=== PATIENT | female | born 1980 | race Caucasian/White ===

== ENCOUNTER 2018-12-13 12:19 | Inpatient (IN) | payer SELFPAY, MEDICAID ==
[2018-12-13] MEDS ORDERED: MISOPROSTOL 200 MCG TAB PR ×2 (13:00→20:00)
[2018-12-13] MEDS ORDERED: OXYTOCIN 30 UNITS/LR 500 ML IV ×2 (13:00→20:00)
[2018-12-13] MEDS ORDERED: METHYLERGONOVINE 0.2 MG INJ IM ×2 (13:00→20:00)
[2018-12-13] MEDS ORDERED: CARBOPROST 250 MCG INJ IM ×2 (13:00→20:00)
[2018-12-13 13:09] LABS: ADD MAN DIFF? NO
[2018-12-13 13:12] LABS: BASOPHILS % 0.2 % (0.0-2.0); EOSINOPHILS # 0.1 10^3/ul (0.0-0.5); EOSINOPHILS % 0.8 % (0.0-7.0); HEMATOCRIT 33.4 % (37.0-47.0); HEMOGLOBIN 11.4 g/dl (12.0-16.0); LYMPHOCYTES # 2.2 10^3/ul (0.8-2.9); LYMPHOCYTES % 22.7 % (15.0-51.0); MEAN CORPUSCULAR HGB CONC 34.1 g/dl (32.0-37.0); MEAN CORPUSCULAR VOLUME 90.8 fl (82.0-101.0); MEAN PLATELET VOLUME 10.7 fl (7.4-10.4); MONOCYTE # 0.8 10^3/ul (0.3-0.9); MONOCYTES % 7.7 % (0.0-11.0); NEUTROPHIL # 6.6 10^3/ul (1.6-7.5); NEUTROPHILS % 67.9 % (39.0-77.0); PLATELET COUNT 181 10^3/UL (140-415); RED BLOOD COUNT 3.68 10^6/ul (4.20-5.40); RED CELL DISTRIBUTION WIDTH 14.1 % (11.5-14.5)
[2018-12-13 13:12] LABS: WHITE BLOOD COUNT 9.7 10^3/ul (4.8-10.8)
[2018-12-13 13:31] LABS: INR 0.92; PARTIAL THROMBOPLASTIN TIME 28.4 Sec (23.0-35.0); PROTIME 12.5 Sec (11.9-14.9)
[2018-12-13] MEDS: LACTATED RINGER'S 1,000 ML IV ×2 (14:03→20:17)
[2018-12-13] MEDS: CITRIC ACID/NA CITRATE 30 ML CUP PO (14:18)
[2018-12-13] MEDS: ONDANSETRON 4 MG INJ IV (14:19)
[2018-12-13] MEDS: AZITHROMYCIN 500MG/NS (PMX) 250 ML IVPB (14:37)
[2018-12-13 15:02] LABS: RAPID PLASMA REAGIN NONREACTIVE (NR)
[2018-12-13] MEDS ORDERED: FENTAnyl 50 MCG/ML VIAL (15:18)
[2018-12-13] MEDS ORDERED: OXYTOCIN 10 UNIT INJ (15:19)
[2018-12-13] MEDS ORDERED: METOCLOPRAMIDE 10 MG INJ (15:19)
[2018-12-13] MEDS ORDERED: morphine SULFATE/PF (10 MG/10 ML) INJ (15:19)
[2018-12-13] MEDS ORDERED: MIDAZOLAM 1 MG/ML 2 ML INJ (15:44)
[2018-12-13] MEDS ORDERED: KETAMINE (50 MG/ML) 10 ML VIAL (15:44)
[2018-12-13] MEDS ORDERED: KETOROLAC 30 MG INJ (15:58)
[2018-12-13] MEDS ORDERED: OXYCODONE/ACETAMINOPHEN (5/325) TAB PO ×2 (16:00)
[2018-12-13] MEDS ORDERED: ONDANSETRON 4 MG INJ IV ×2 (16:00)
[2018-12-13] MEDS ORDERED: MIDAZOLAM 1 MG/ML 2 ML INJ IV (16:00)
[2018-12-13] MEDS ORDERED: LABETALOL HCL 20MG INJ IV (16:00)
[2018-12-13] MEDS ORDERED: EPHEDrine SULFATE 50 MG/5 ML SYG IV (16:00)
[2018-12-13] MEDS ORDERED: NALBUPHINE HCL (10 MG/1 ML) INJ IV (16:00)
[2018-12-13] MEDS ORDERED: MEPERIDINE 25 MG INJ IV (16:00)
[2018-12-13] MEDS ORDERED: ALBUTEROL 0.083% (NEB) 2.5 MG/3 ML AMP HHN (16:00)
[2018-12-13] MEDS ORDERED: DIPHENHYDRAMINE 50 MG INJ IV ×2 (16:00)
[2018-12-13] MEDS ORDERED: FENTAnyl 50 MCG/ML VIAL IV ×3 (16:00)
[2018-12-13] MEDS ORDERED: hydrALAzine 20 MG INJ IV (16:00)
[2018-12-13] MEDS ORDERED: IPRATROPIUM (NEB) 0.5 MG/2.5 ML AMP HHN (16:00)
[2018-12-13] MEDS ORDERED: TRIMETHOBENZAMIDE 100 MG/ML VIAL IM ×2 (16:00)
[2018-12-13] MEDS ORDERED: morphine 2 MG INJ IV ×2 (16:00)
[2018-12-13] MEDS ORDERED: NALOXONE (0.4 MG/ML) INJ IV (16:00)
[2018-12-13] MEDS: OXYTOCIN 30 UNITS/LR 500 ML IV (17:00)
[2018-12-13] MEDS: CEFAZOLIN 2 GM/50 ML (PMX) 50 ML IVPB ×2 (17:19→20:58)
[2018-12-13] MEDS: KETOROLAC 30 MG INJ IV (20:17)
[2018-12-13] MEDS: SENNA/DOCUSATE NA (8.6MG/50MG) TAB PO (21:00)
[2018-12-14] MEDS: CLINDAMYCIN 300 MG CAP PO ×5 (00:41→23:44)
[2018-12-14] MEDS: CEFAZOLIN 2 GM/50 ML (PMX) 50 ML IVPB ×2 (04:59→12:40)
[2018-12-14] MEDS: LACTATED RINGER'S 1,000 ML IV ×3 (06:38→22:30)
[2018-12-14 07:19] LABS: ADD MAN DIFF? NO
[2018-12-14 07:24] LABS: WHITE BLOOD COUNT 12.1 10^3/ul (4.8-10.8)
[2018-12-14 07:24] LABS: BASOPHILS % 0.2 % (0.0-2.0); EOSINOPHILS % 0.2 % (0.0-7.0); HEMATOCRIT 28.8 % (37.0-47.0); HEMOGLOBIN 10.1 g/dl (12.0-16.0); LYMPHOCYTES # 1.5 10^3/ul (0.8-2.9); LYMPHOCYTES % 12.1 % (15.0-51.0); MEAN CORPUSCULAR HEMOGLOBIN 31.6 pg (29.0-33.0); MEAN CORPUSCULAR HGB CONC 35.1 g/dl (32.0-37.0); MEAN PLATELET VOLUME 10.7 fl (7.4-10.4); MONOCYTE # 0.6 10^3/ul (0.3-0.9); MONOCYTES % 4.9 % (0.0-11.0); NEUTROPHIL # 9.9 10^3/ul (1.6-7.5); NEUTROPHILS % 81.9 % (39.0-77.0); PLATELET COUNT 148 10^3/UL (140-415); RED CELL DISTRIBUTION WIDTH 13.9 % (11.5-14.5)
[2018-12-14] MEDS: SENNA/DOCUSATE NA (8.6MG/50MG) TAB PO ×2 (09:01→21:41)
[2018-12-14 09:43] LABS: HEPATITIS B SURFACE ANTIGEN NEGATIVE (NEGATIVE)
[2018-12-14] MEDS: BISACODYL 10 MG SUPP PR (11:00)
[2018-12-14] MEDS: KETOROLAC 30 MG INJ IV (12:40)
[2018-12-14] MEDS: IBUPROFEN 800 MG TAB PO ×2 (15:21→21:41)
[2018-12-14] MEDS: OXYCODONE/ACETAMINOPHEN (5/325) TAB PO (15:56)
[2018-12-14] MEDS: HYDROCODONE/APAP (5/325) TAB PO (23:45)
[2018-12-15] MEDS: HYDROCODONE/APAP (5/325) TAB PO ×2 (03:56→08:53)
[2018-12-15] MEDS: CLINDAMYCIN 300 MG CAP PO ×3 (05:22→17:58)
[2018-12-15] MEDS: IBUPROFEN 800 MG TAB PO ×3 (05:23→21:41)
[2018-12-15] MEDS: LACTATED RINGER'S 1,000 ML IV (06:30)
[2018-12-15 08:37] LABS: ADD MAN DIFF? NO
[2018-12-15 08:44] LABS: BASOPHILS % 0.3 % (0.0-2.0); EOSINOPHILS # 0.1 10^3/ul (0.0-0.5); EOSINOPHILS % 1.1 % (0.0-7.0); HEMATOCRIT 28.7 % (37.0-47.0); HEMOGLOBIN 9.8 g/dl (12.0-16.0); LYMPHOCYTES # 1.8 10^3/ul (0.8-2.9); LYMPHOCYTES % 16.7 % (15.0-51.0); MEAN CORPUSCULAR HEMOGLOBIN 31.3 pg (29.0-33.0); MEAN CORPUSCULAR HGB CONC 34.1 g/dl (32.0-37.0); MEAN CORPUSCULAR VOLUME 91.7 fl (82.0-101.0); MEAN PLATELET VOLUME 10.6 fl (7.4-10.4); MONOCYTE # 0.6 10^3/ul (0.3-0.9); MONOCYTES % 5.4 % (0.0-11.0); NEUTROPHIL # 8.3 10^3/ul (1.6-7.5); NEUTROPHILS % 75.6 % (39.0-77.0); PLATELET COUNT 160 10^3/UL (140-415); RED BLOOD COUNT 3.13 10^6/ul (4.20-5.40); RED CELL DISTRIBUTION WIDTH 14.4 % (11.5-14.5)
[2018-12-15] MEDS: LANOLIN HPA 1 PKT TOP (08:53)
[2018-12-15] MEDS: SENNA/DOCUSATE NA (8.6MG/50MG) TAB PO ×2 (08:53→21:41)
[2018-12-15] MEDS ORDERED: ACETAMINOPHEN 325 MG TAB PO (14:30)
[2018-12-15] MEDS: NA PHOSPHATE/BIPHOS 133 ML ENEMA PR (17:05)
[2018-12-15] MEDS: OXYCODONE/ACETAMINOPHEN (5/325) TAB PO (17:59)
[2018-12-16] MEDS: CLINDAMYCIN 300 MG CAP PO ×3 (00:09→11:40)
[2018-12-16] MEDS: IBUPROFEN 800 MG TAB PO ×2 (06:07→13:32)
[2018-12-16] MEDS: SENNA/DOCUSATE NA (8.6MG/50MG) TAB PO (08:34)
[2018-12-16] MEDS: OXYCODONE/ACETAMINOPHEN (5/325) TAB PO (08:35)
[2018-12-16] MEDS: MEASLES,MUMPS,RUBELLA VACCINE INJ SC* (09:46)
[2018-12-16] MEDS: DIPHTH/TET/ACEL PERTUSS (ADULT) 0.5 ML VIAL IM* (09:47)
== END 2018-12-16 13:40 | disposition home or self-care (01) | DRG 788 ==
LOC: L-D 12:19 → PP1 18:59
PROVIDERS: Obstetrics & Gynecology
PROC: 10D00Z1 Extraction of Products of Conception, Low, Open Approach (ICD-10-PCS; principal; 2018-12-13 14:30)
DX: O34.211 Maternal care for low transverse scar from previous cesarean delivery (principal); Z3A.39 39 weeks gestation of pregnancy; Z37.0 Single live birth
CPT/HCPCS: 85025; 85610; 85730; 86592; 86850; 86900; 86901; 87340; 99464